=== PATIENT | male | born 1955 ===

== ENCOUNTER 2019-03-21 12:53 | Outpatient (CLI) | payer MEDICARE, SELFPAY ==
--- NOTE | 2019-03-21 13:04 | XR_ITS ---
WS: [id number] RIGHT KNEE: 3 VIEW(S) TECHNIQUE: AP, oblique(s) and lateral. HISTORY: ACUTE PAIN OF RIGHT KNEE COMPARISON: None available. No fracture or dislocation. Mild narrowing and osteophyte formation at the joint lines. Chondrocalcinosis developing in the media l and lateral compartments. No joint effusion. No soft tissue abnormality. XR/XR knee RT 3V* [id number] IMPRESSION: Mild tricompartment osteoarthritis and chondrocalcinosis.
== END 2019-03-21 12:54 | disposition home or self-care (01) ==
LOC: WPI 13:02
PROVIDERS: Family Provider Family Medicine
DX: M25.561 Pain in right knee (principal)
CPT/HCPCS: 73562

== ENCOUNTER 2020-07-22 09:13 | Outpatient (CLI) | payer MEDICARE, SELFPAY ==
--- NOTE | 2020-07-22 09:20 | MR_ITS ---
WS: [id number] MRI RIGHT KNEE NONCONTRAST TECHNIQUE: Axial PD, coronal PD fat sat, coronal PD, sagittal PD, and sagittal PD fat-sat images obta ined. CLINICAL INFORMATION: RIGHT KNEE PAIN FINDINGS: Distal quadriceps and patella tendons are intact. Hypertrophic patella. Normal ACL and PCL. Normal me dial and lateral meniscus. No acute appearing meniscal tears. Chronic intrasubstance signal abnormali ty involving the posterior horn medial meniscus. Normal medial and lateral joint compartments. Normal medial and lateral collateral ligaments. Advanced chondromalacia patella. No subchondral edema. Normal popliteal fossa. MR/MR knee RT wo con* [id number] IMPRESSION: 1. Normal anterior and posterior cruciate ligaments. 2. Hypertrophic patella with moderate chondro malacia patella. No subchondral edema. 3. No acute appearing meniscal tears. Chronic appearing intrasubstance signal abnormality posterior horn medial meniscus. 4. Normal medial and lateral collateral ligaments. 5. No other significant findings.
== END 2020-07-22 09:14 | disposition home or self-care (01) ==
PROVIDERS: Family Provider Family Medicine
DX: M25.561 Pain in right knee (principal)
CPT/HCPCS: 73721

== ENCOUNTER → 2023-09-06 13:14 | Outpatient (BNVA) | payer MEDICARE, SELFPAY | PROVIDERS: Family Provider Family Medicine; Referring Provider Family Medicine; Visit Provider Specialist | DX: M25.561 Pain in right knee; M25.562 Pain in left knee; G89.29 Other chronic pain; M23.42 Loose body in knee, left knee | CPT/HCPCS: 73560; 73565 ==

== ENCOUNTER 2023-11-21 07:11 | Outpatient (CLI) | payer MEDICARE, SELFPAY ==
--- NOTE | 2023-11-21 07:15 | MR_ITS ---
WS: [id number] MRI LEFT KNEE HISTORY: left knee pain COMPARISON: 07/21/2012 Anterior cruciate ligament: Intact. Posterior cruciate ligament: Intact. Medial collateral ligament: MCL is displaced from the joint line. Similar to the prior study. There i s increased soft tissue between the femoral condyle and the MCL which appears to follow fat on all se quences. After reviewing the prior radiographs this is probably chondrocalcinosis. Posterior lateral corner structures: Intact. Medial menisci: Partially extruded medial meniscus. Mild fraying along the surfaces. No tear. Lateral meniscus: Small caliber and abnormal lateral meniscus. Lateral meniscus continues to decrease in size compared to 07/21/2012. Posterior horn is normal. There is a small parameniscal cyst noted an teriorly extending into Hoffa's fat pad. Extensor mechanism: Distal quadriceps tendon and patellar tendons are intact. Fluid and soft tissue: Increasing fluid in the posterior knee is associated with the PCL. No Acuna's cyst. Osseous and articular structures: Patellofemoral compartment: Normal position of the patella. Very mild chondromalacia. No edema. Medial compartment: Mild narrowing the medial compartment. Full-thickness defect along the weightbear ing surface of the femoral condyle with associated subchondral marrow edema. Progression of internal derangement in the medial compartment since the prior study. Lateral compartment: Moderate narrowing of the lateral compartment with mild diffuse chondromalacia MR/MR knee LT wo con* [id number] IMPRESSION: 1. Progression of chronic degenerative changes involving the anterior horn of the lateral meniscus with small parameniscal cyst. 2. Displacement of the MCL from the joint line. Chondrocalcinosis was noted on the recent radiographs. 3. Increased fluid along the PCL is new since the prior study and probably rep resents a ganglion. 4. Moderate lateral compartment internal derangement. 5. Mild internal derangement medial compartment with mild progression of chond romalacia since the prior study.
== END 2023-11-21 07:12 | disposition home or self-care (01) ==
PROVIDERS: Family Provider Family Medicine; PCP Family Medicine; Visit Provider Specialist
DX: M23.242 Derangement of anterior horn of lateral meniscus due to old tear or injury, left knee (principal); S83.412A Sprain of medial collateral ligament of left knee, initial encounter; M25.462 Effusion, left knee; M23.201 Derangement of unspecified lateral meniscus due to old tear or injury, left knee; M94.262 Chondromalacia, left knee; X58.XXXA Exposure to other specified factors, initial encounter
CPT/HCPCS: 73721; 99204

== ENCOUNTER → 2025-01-15 08:00 | Outpatient (BNVA) | payer MEDICARE, SELFPAY | PROVIDERS: Family Provider Family Medicine; PCP Family Medicine; Visit Provider Student in an Organized Health Care Education/Training Program | DX: M17.0 Bilateral primary osteoarthritis of knee (principal); M11.89 Other specified crystal arthropathies, multiple sites | CPT/HCPCS: 73560; 73565; 99204 ==

== ENCOUNTER 2025-01-29 13:43 | Outpatient (CLI) | payer MEDICARE, SELFPAY ==
--- NOTE | 2025-01-29 13:45 | CT_ITS ---
WS: [id number] CT LEFT KNEE, NONCONTRAST [facility] TECHNIQUE: Noncontrast CT of the LEFT knee to include the LEFT hip and ankle. CLINICAL INFORMATION: surgical planning DLP: 1021.[address] scans at [facility] use at least one of these dose optimization techniques: automated exposure control; mA and/or kV adjustment per patient size (includes targeted exams where dose is matched to clinical indication); or iterative reconstruction. FINDINGS: Advanced tricompartmental arthritis LEFT knee. Hypertrophic patella. Soft tissue calcification and chondrocalcinosis.. Small suprapatellar effusion. Vascular calcification. Fat-containing RIGHT inguinal hernia. Mild prostate enlargement measuring 4.[address]/CT knee LT [facility] [id number] IMPRESSION: Images obtained for preoperative purposes.
== END 2025-01-29 13:44 | disposition home or self-care (01) ==
LOC: RAD 13:44
PROVIDERS: PCP Family Medicine; Visit Provider Student in an Organized Health Care Education/Training Program
DX: M17.12 Unilateral primary osteoarthritis, left knee (principal); M22.8X2 Other disorders of patella, left knee; M11.262 Other chondrocalcinosis, left knee; M79.89 Other specified soft tissue disorders; M25.462 Effusion, left knee; I70.202 Unspecified atherosclerosis of native arteries of extremities, left leg; K40.90 Unilateral inguinal hernia, without obstruction or gangrene, not specified as recurrent; N40.0 Benign prostatic hyperplasia without lower urinary tract symptoms
CPT/HCPCS: 73700

== ENCOUNTER 2025-03-12 08:34 | Outpatient (CLI) | payer MEDICARE, SELFPAY ==
[2025-03-12 09:23] LABS: Hematocrit 45.2 % (37-53); Hemoglobin 15.00 g/dL (11.27-16.99); Mean Corpuscular HGB Conc 33.2 g/dL (30-55); Mean Corpuscular Hemoglobin 29.1 pg (27-33); Mean Corpuscular Volume 87.8 fl (82-101); Nucleated Red Blood Cells % 0 %; Platelet Count 251 10^3/cmm (157-399); Red Blood Count 5.15 10^6/uL (3.85-5.65); White Blood Count 4.92 10^3/uL (3.29-11.43)
[2025-03-12 09:23] LABS: Glucose Urine UA Negative (Normal); Nitrate Urine Negative (Negative); Specific Gravity, Urine 1.017 (1.005-1.030)
[2025-03-12 09:28] LABS: Add Urine Microscopic? YES
[2025-03-12 09:46] LABS: Alanine Aminotransferase 9 U/L (0-41); Albumin Level 4.4 g/dL (3.5-5.2); Alkaline Phosphatase 59 U/L (40-130); Anion Gap 16.2 (5-19); Aspartate Amino Transferase 14 U/L (0-40); Blood Urea Nitrogen 16 mg/dL (8-23); Calcium 9.2 mg/dL (8.5-10.5); Carbon Dioxide 24 mmol/L (22-29); Chloride 104 mmol/L (98-107); Globulin 2.9 g/dL (1.3-4.6); Glucose 103 mg/dL (65-115); Osmolality Calculated 291 mOsm/kg (285-295); Potassium 4.2 mmol/L (3.5-5.1); Sodium 140 mmol/L (136-145); Total Protein 7.3 g/dL (6.6-8.7)
== END 2025-03-12 08:35 | disposition home or self-care (01) ==
PROVIDERS: PCP Family Medicine; Visit Provider Student in an Organized Health Care Education/Training Program
DX: Z01.818 Encounter for other preprocedural examination (principal)
CPT/HCPCS: 36415; 80053; 81001; 85025